=== PATIENT | male | born 1965 | race Caucasian/White ===

== ENCOUNTER 2024-04-23 11:30 | Outpatient (CLI) | payer OTHER, SELFPAY ==
[2024-04-23 14:06] LABS: Basophils # 0.1 K/mm3 (0-0.2); Basophils % 0.9 % (0.1-2.0); Eosinophils # 0.4 K/mm3 (0.0-0.4); Eosinophils % 4.5 % (0.1-12.0); Hematocrit 50.7 % (42.0-52.0); Hemoglobin 17.1 g/dL (14.1-18.0); Lymphocytes # 2.6 K/mm3 (0.7-4.5); Lymphocytes % 29.9 % (10-50); Mean Corpuscular HGB Conc 33.7 g/dL (31.8-35.4); Mean Corpuscular Hemoglobin 30.3 pg (27.0-31.2); Mean Corpuscular Volume 89.9 fl (80-94); Mean Platelet Volume 8.2 fl (7.4-10.4); Monocytes # 0.9 K/mm3 (0.1-1.0); Neutrophils # 4.7 K/mm3 (1.8-7.8); Neutrophils % 54.7 % (37.0-80.0); Platelet Count 283 K/mm3 (142-424); Red Blood Count 5.64 M/mm3 (4.60-6.20); Red Cell Distribution Width 13.5 % (11.5-17.5); White Blood Count 8.6 K/mm3 (4.8-10.8)
[2024-04-23 14:25] LABS: Albumin Level 4.2 g/dl (3.5-5.0); Chloride 107 mmol/L (98-107); Potassium 4.2 mmoL/L (3.5-5.1); Sodium 134 mmol/L (136-145)
[2024-04-23 14:28] LABS: Alanine Aminotransferase 30 U/L (12-78); Albumin/Globulin Ratio 1.8 (1.1-1.8); Alkaline Phosphatase 91 U/L (38-126); Anion Gap 9.2 mEq/L (5-15); Aspartate Amino Transferase 27 U/L (17-59); Bilirubin,Total 0.6 mg/dl (0.2-1.3); Blood Urea Nitrogen 16 mg/dl (9-20); Carbon Dioxide 22 mmol/L (22.0-30.0); Cholesterol 181 mg/dl (140-200); Estimated Glomerular Filt Rate 87 ml/min (>60); GFR (African American) 105 ML/MIN (>60); Globulin 2.4 g/dL (1.3-3.2); Iron 132 ug/dL (49-181); Total Protein,Serum 6.6 g/dl (6.3-8.2); Triglycerides 229 mg/dl (30-150); VLDL Cholesterol 46 mg/dL (0-40)
[2024-04-23 14:29] LABS: Calcium 9.2 mg/dl (8.4-10.2); Glucose 103 mg/dl (74-100); HDL Cholesterol 30 mg/dl (40-60)
[2024-04-23 14:44] LABS: Direct LDL Cholesterol 102.03 mg/dL (100-129)
[2024-04-23 14:50] LABS: Free T4 (Free Thyroxine) 1.01 ng/dl (0.78-2.19)
[2024-04-23 16:17] LABS: 25-OH Vitamin D, Total 33.4 ng/mL (30-100)
[2024-04-23 16:35] LABS: Prostate Specific Ag Screen 1.1 ng/ml (0.0-4.0)
[2024-04-23 16:52] LABS: Thyroid Stimulating Hormone 1.67 uIU/mL (0.465-4.68)
[2024-04-23 16:54] LABS: Vitamin B12 356 pg/mL (239-931)
[2024-04-23 17:51] LABS: Hemoglobin A1C 5.9 % (4.0-6.0)
[2024-04-23 18:37] LABS: Total Iron Binding Capacity 416 ug/dL (261-462)
[2024-04-23 19:04] LABS: Ferritin 76.4 ng/ml (17.9-464)
[2024-04-24 07:57] LABS: HCV Ab Non Reactive (Non Reactive)
[2024-04-24 14:48] LABS: HIV Combo NEGATIVE (Negative)
== END 2024-04-23 23:59 | disposition home or self-care (01) ==
LOC: LAB.DROPOF 04-24 11:31
PROVIDERS: PCP Nurse Practitioner Family; Visit Provider Nurse Practitioner Family
DX: R53.83 Other fatigue (principal); R73.03 Prediabetes; E78.5 Hyperlipidemia, unspecified; Z11.59 Encounter for screening for other viral diseases; Z12.5 Encounter for screening for malignant neoplasm of prostate; Z11.4 Encounter for screening for human immunodeficiency virus [HIV]
CPT/HCPCS: 80050; 80053; 80061; 82306; 82607; 82728; 83036; 83540; 83550; 84439; 84443; 85025; 86803; 87389; G0103

== ENCOUNTER 2024-04-24 19:07 | Outpatient (CLI) | payer SELFPAY ==
[2024-04-24 19:27] LABS: Microscopic, Urine URINE MICROSCOPIC (MICROSCOPIC)
[2024-04-24 19:32] LABS: Appearance,Urine CLEAR (Clear); Bilirubin,Urine Negative (Negative); Blood, Urine Negative (Negative); Color,Urine YELLOW (Yellow); Glucose,Urine (UA) Negative (Negative); Ketones,Urine Negative (Negative); Leukocyte Esterase,Urine Negative (Negative); Nitrate,Urine Negative (Negative); Protein,Urine Negative (Negative); Specific Gravity, Urine >= 1.030 (1.005-1.030); Urobilinogen,Urine 0.2 EU/dl (0.2)
[2024-04-24 19:37] LABS: Total Protein,Urine Random < 5.0 mg/dL (0.0-12.0)
[2024-04-24 20:36] LABS: Bacteria,Urine 1+ /lpf; Calcium Oxalate Crystals,Urine 1+ /lpf; Mucus,Urine 2+ /lpf
== END 2024-04-24 23:59 | disposition home or self-care (01) ==
PROVIDERS: PCP Nurse Practitioner Family; Visit Provider Nurse Practitioner Family
DX: R73.03 Prediabetes (principal); I10 Essential (primary) hypertension; Z72.0 Tobacco use
CPT/HCPCS: 81001; 84156; 87086